=== PATIENT | female | born 1960 | race Two or more races ===

== ENCOUNTER 2016-12-18 22:46 | Emergency (ER) | payer BC ==
[~2016-12-18] VITALS: Ht 154.9 cm; Wt 77.9 kg
[~2016-12-18 22:46] MED LIST: AMLO5TAB4 PO; ASPI325T4 PO; CLON0.1T PO; HYDR-3240 PO; LISI1TAB7 PO; NEBI5TAB2 PO; OLME1TAB PO; POTASSIUM PO; TRAM50TA2 PO
[2016-12-18 23:07] VITALS: BP 166/68
[2016-12-19] MEDS ORDERED: MICROFIBRILLAR COLLAGEN 1 GM TP ONE (00:25)
[2016-12-19] MEDS ORDERED: LIDOCAINE 1%-EPI 1:100K, 20ML INFIL ONE (00:30)
== END 2016-12-19 00:50 | disposition home or self-care (01) ==
LOC: ED 12-19 00:46
DX: K91.841 Postprocedural hemorrhage of a digestive system organ or structure following other procedure (principal); E78.5 Hyperlipidemia, unspecified; I10 Essential (primary) hypertension; Z79.82 Long term (current) use of aspirin; Z90.49 Acquired absence of other specified parts of digestive tract
CPT/HCPCS: 99283